=== PATIENT | female | born 1975 | race Caucasian/White ===

== ENCOUNTER → 2016-12-02 | Outpatient (CLI) | payer OTHER ==
--- NOTE | 2016-12-02 09:05 | US ---
Sonography Limited to the Right Upper Quadrant of the Abdomen CLINICAL HISTORY: 40-year-old female with a sensation of "pressure" in the right upper quadrant under neath the rib cage. ICD 10 Diagnostic Code: R10.11. TECHNIQUE: A curvilinear 5 MHz transducer was used to sonographically evaluate the right upper quadra nt of the abdomen. Color Doppler was used. COMPARISON STUDY: None. FINDINGS: The pancreatic contour is normal. The abdominal aorta is normal in size, and tapers normall y. The visualized IVC is normal in caliber. The hepatic vein trifurcation is normal. The main portal vein is patent. The liver is normal in size, measuring 16.8 cm along the right midaxillary line. Ther e is no intra or extrahepatic bile duct dilatation. The common bile duct measures 2.1 mm. The gallbla dder is moderately distended, and there is no evidence of cholelithiasis, sludge, polyp, wall thicken ing, pericholecystic fluid, or sonographic Oden sign. A junctional fold is seen. The right kidney i s normal in size, shape, and contour, with a normal renal cortical thickness, and no focal renal mass or hydronephrosis, and measures 11.6 x 3.5 x 4.1 cm. The auto design detailer indicated that the patient's "a gayle of pressure" was experienced when scanning over the right kidney. There is no ascites or right pl eural effusion. IMPRESSION: Normal study.
== END ==
LOC: BMCIMAGING 07:51
PROVIDERS: ATTEND Internal Medicine
DX: R10.11 Right upper quadrant pain (principal)

== ENCOUNTER → 2017-04-08 | Outpatient (CLI) | payer OTHER | LOC: BMCIMAGING 11:33 | PROVIDERS: ATTEND Physician Assistant Medical | DX: R07.9 Chest pain, unspecified (principal) ==

== ENCOUNTER → 2017-11-26 | Outpatient (CLI) | payer OTHER | LOC: FIMAGING 10:06 | PROVIDERS: ATTEND Internal Medicine | DX: N63.0 Unspecified lump in unspecified breast (principal) ==

== ENCOUNTER 2018-10-13 16:29 | Emergency (ER) | payer OTHER ==
[2018-10-13] MEDS ORDERED: NS 1,000 ML IV ONE ×2 (16:53→16:57)
--- NOTE | 2018-10-13 16:57 | EDPHY ---
H & P Stated Complaint: l knee surg yesterday/today lightheaded /syncope/bp low Time Seen by Provider: 10/13/18 16:57 HPI/ROS: CHIEF COMPLAINT: Syncope following knee surgery HISTORY OF PRESENT ILLNESS: The patient presents to the ED after an episode of syncope today. She is postop day 1 status post partial left knee replacement. The patient was having an episode of severe pain prior to passing out. She complains of pain in her knee. She denies any calf pain. She has no complaints of chest pain, shortness of breath or pleuritic chest pain. The patient denies significant past medical history. She is not anticoagulated. She denies any acute numbness or weakness. She denies palpitations. She does feel somewhat dehydrated. She has been taking oral pain medications at home. REVIEW OF SYSTEMS: A comprehensive 10 point review of systems is otherwise negative aside from elements mentioned in the history of present illness. Source: Patient Exam Limitations: No limitations - Personal History LMP (Females 10-55): 15-21 Days Ago Current Tetanus Diphtheria and Acellular Pertussis (TDAP): Yes - Medical/Surgical History Hx Asthma: No Hx Chronic Respiratory Disease: No Hx Diabetes: No Hx Cardiac Disease: No Hx Renal Disease: No Hx Cirrhosis: No Hx Alcoholism: No Hx HIV/AIDS: No Hx Splenectomy or Spleen Trauma: No Other PMH: l knee surg - Social History Smoking Status: Never smoked - Physical Exam Exam: General Appearance: Alert, no distress Eyes: Pupils equal and round no pallor or injection ENT, Mouth: Mucous membranes moist Respiratory: There are no retractions, lungs are clear to auscultation Cardiovascular: Regular rate and rhythm Gastrointestinal: Abdomen is soft and nontender, no masses, bowel sounds normal Neurological: 5/5 strength noted all 4 extremities Skin: Surgical incision is clean dry and intact Musculoskeletal: Neck is supple nontender Extremities: symmetrical, no cellulitic changes, no clinical evidence of DVT noted in the left lower extremity Constitutional: Initial Vital Signs Temperature (C) 36.6 C 10/13/18 16:33 Heart Rate 60 10/13/18 16:33 Respiratory Rate 17 10/13/18 16:33 Blood Pressure 90/61 L 10/13/18 16:33 O2 Sat (%) 96 10/13/18 16:33 O2 Delivery Mode Room Air Allergies/Adverse Reactions: No Known Allergies Allergy (Unverified 10/13/18 16:32) Home Medications: Medication Instructions Recorded Fluoxetine DR 90mg 10/13/18 Oxycodone HCl 10/13/18 Medical Decision Making - Diagnostics EKG Interpretation: EKG: Complete interpretation has been separately recorded in the [facility] archive. Summary impression: Sinus rhythm, rate 53, right bundle branch block ED Course/Re-evaluation: The patient presents to the ED after a syncopal episode which is likely vasovagal in nature. The patient had an IV established. She received 2 L of normal saline. Screening laboratory studies were performed and are unremarkable. The patient did have a EKG did demonstrates no evidence of arrhythmia. The patient received some IV Dilaudid for postoperative pain. She received serial examinations in the ED. I re-evaluated the patient at 6:30 p.m.. She is ambulatory and has no acute complaints aside from pain at her surgical incision. The patient is comfortable going home at this point time. She has nothing to suggest DVT or pulmonary embolism currently. The patient has been instructed to return to the ED for the development of any recurrent syncope, increasing pain, fever, redness, calf swelling or other concerns. Differential Diagnosis: Differential diagnosis considered includes vasovagal episode, dehydration, metabolic abnormality, renal failure, medication side effect, arrhythmia - Data Points Laboratory Results: Laboratory Results 10/13/18 17:00 10/13/18 17:00 10/13/18 10/13/18 10/13/18 17:00 17:00 17:00 WBC 9.42 10^3/uL 10^3/uL (3.80-9.50) RBC 4.18 10^6/uL 10^6/uL (4.18-5.33) Hgb 12.6 g/dL g/dL (12.6-16.3) Hct 38.0 % % (38.0-47.0) MCV 90.9 fL fL (81.5-99.8) MCH 30.1 pg pg (27.9-34.1) MCHC 33.2 g/dL g/dL (32.4-36.7) RDW 12.7 % % (11.5-15.2) Plt Count 185 10^3/uL 10^3/uL (150-400) MPV 10.1 fL fL (8.7-11.7) Neut % (Auto) 80.3 % H % (39.3-74.2) Lymph % (Auto) 12.8 % L % (15.0-45.0) [place] % (Auto) 5.8 % % (4.5-13.0) Eos % (Auto) 0.6 % % (0.6-7.6) Baso % (Auto) 0.2 % L % (0.3-1.7) Nucleat RBC Rel Count 0.0 % % (0.0-0.2) Absolute Neuts (auto) 7.55 10^3/uL H 10^3/uL (1.70-6.50) Absolute Lymphs (auto) 1.21 10^3/uL 10^3/uL (1.00-3.00) Absolute Monos (auto) 0.55 10^3/uL 10^3/uL (0.30-0.80) Absolute Eos (auto) 0.06 10^3/uL 10^3/uL (0.03-0.40) Absolute Basos (auto) 0.02 10^3/uL 10^3/uL (0.02-0.10) Absolute Nucleated RBC 0.00 10^3/uL 10^3/uL (0-0.01) Immature Gran % 0.3 % % (0.0-1.1) Immature Gran # 0.03 10^3/uL 10^3/uL (0.00-0.10) Sodium 135 mEq/L mEq/L (135-145) Potassium 4.2 mEq/L mEq/L (3.5-5.2) Chloride 106 mEq/L mEq/L (97-110) Carbon Dioxide 24 mEq/l mEq/l (22-31) Anion Gap 5 mEq/L L mEq/L (6-14) BUN 12 mg/dL mg/dL (7-23) Creatinine 0.9 mg/dL mg/dL (0.6-1.0) Estimated GFR > 60 Glucose 142 mg/dL H mg/dL (70-100) Calcium 8.5 mg/dL mg/dL (8.5-10.4) Beta HCG, Qual NEGATIVE Medications Given: Discontinued Medications Hydromorphone HCl (Dilaudid) 0.5 mg IVP EDNOW ONE Stop: 10/13/18 17:23 Last Admin: 10/13/18 17:30 Dose: 0.5 mg Hydromorphone HCl (Dilaudid) 0.5 mg IVP EDNOW ONE Stop: 10/13/18 17:55 Last Admin: 10/13/18 17:55 Dose: 0.5 mg Sodium Chloride (Ns) 1,000 mls @ 0 mls/hr IV EDNOW ONE; Wide Open PRN Reason: Protocol Stop: 10/13/18 16:54 Last Admin: 10/13/18 16:59 Dose: 1,000 mls Sodium Chloride (Ns) 1,000 mls @ 0 mls/hr IV EDNOW ONE; Wide Open PRN Reason: Protocol Stop: 10/13/18 16:58 Last Admin: 10/13/18 17:58 Dose: 1,000 mls Departure - Departure Disposition: Home, Routine, Self-Care Clinical Impression: Vasovagal syncope Condition: Good Instructions: Syncope (ED) Additional Instructions: 1. Please try and increase your fluid intake as mild dehydration likely contributed to your symptoms today. 2. Please return to the ED for any recurrent passing out, chest pain, shortness of breath, calf pain, redness, swelling or fever. 3. Please schedule a follow-up appointment with your primary care provider as needed. Referrals: Jayna Rosado MD [Primary Care Provider] - As per Instructions
[2018-10-13 17:14] LABS: PLATELET COUNT 185 10^3/uL (150-400)
[2018-10-13] MEDS ORDERED: HYDROmorphONE/DILAUDID 2 MG/ML INJ IVP ONE ×2 (17:22→17:54)
[2018-10-13] MEDS ORDERED: HYDROmorphONE/DILAUDID 1 MG/ML INJ ONE ×2 (17:27→17:49)
--- NOTE | 2018-10-13 18:08 | CPEKG ---
Test Reason : OPEN Blood Pressure : / mmHG Vent. Rate : 053 BPM Atrial Rate : 053 BPM P-R Int : 143 ms QRS Dur : 128 ms QT Int : 460 ms P-R-T Axes : 017 071 054 degrees QTc Int : 432 ms Sinus rhythm Right bundle branch block Confirmed by Rock Méndez ([id number]) on 10/13/2018 6:08:10 PM Referred By: Confirmed By:Rock Méndez
[2018-10-13 18:14] VITALS: BP 114/72
== END 2018-10-13 18:45 | disposition home or self-care (01) ==
DX: R55 Syncope and collapse (principal); G89.18 Other acute postprocedural pain; E86.9 Volume depletion, unspecified; Z98.890 Other specified postprocedural states
CPT/HCPCS: 96374; J1170